=== PATIENT | female | born 1965 | race Caucasian/White ===

== ENCOUNTER 2022-10-23 09:20 | Outpatient (CLI) | payer BC | END 2022-10-23 09:21 | disposition home or self-care (01) | LOC: LABBT 09:20 | PROVIDERS: ATTEND Student in an Organized Health Care Education/Training Program | DX: Z01.818 Encounter for other preprocedural examination (principal); R09.81 Nasal congestion; J34.2 Deviated nasal septum; J32.4 Chronic pansinusitis; J34.3 Hypertrophy of nasal turbinates; J33.9 Nasal polyp, unspecified | CPT/HCPCS: 85014; 93005; 93010 ==

== ENCOUNTER 2022-10-27 06:01 | Day surgery (SDC) | payer BC ==
[2022-10-23 14:55] VITALS: BMI 28.7
[2022-10-27] MEDS ORDERED: Oxymetazoline HCl 0.05% (30 ML BOT) ONE ×2 (06:46→06:51)
[2022-10-27] MEDS ORDERED: fentaNYL PF 100 MCG/2 ML SYRINGE ONE (06:49)
[2022-10-27] MEDS ORDERED: EPINEPHrine 1 MG/ML AMP ONE (06:51)
[2022-10-27] MEDS ORDERED: Bacitracin Zinc Ointment 30 gm TUBE ONE (06:51)
[2022-10-27] MEDS ORDERED: Lidocaine 1% (PF) 30 ML VIAL ONE (06:51)
[2022-10-27] MEDS ORDERED: Propofol 1,000 MG/100 ML VIAL IV ONE ×2 (07:16→09:54)
[2022-10-27] MEDS ORDERED: CEFAZOLIN 2 GM VIAL ONE (07:26)
[2022-10-27] MEDS ORDERED: Sodium Chloride 0.9% 100 ML ONE (07:26)
[2022-10-27] MEDS ORDERED: Rocuronium Bromide 10 MG/ML (10ML VIAL) ONE (07:32)
[2022-10-27] MEDS ORDERED: Ondansetron PF 4 MG/2 ML Vial ONE (07:32)
[2022-10-27] MEDS ORDERED: PROPOFOL 200 MG/20 ML VIAL ONE (07:32)
[2022-10-27] MEDS ORDERED: Glycopyrrolate 0.2 MG/ML 5 ML SYRINGE ONE (07:32)
[2022-10-27] MEDS ORDERED: NEOSTIGMINE 3 MG/3 ML SYR 3 MG/3 ML SYRINGE ONE (07:32)
[2022-10-27] MEDS ORDERED: Lidocaine 1% PF 5 ML VIAL ONE (07:32)
[2022-10-27] MEDS ORDERED: Dexamethasone 20 MG/5 ML VIAL ONE (07:32)
[2022-10-27] MEDS ORDERED: PHENYLEPHRINE-NS 100 MCG/ML 10 ML SYRINGE ONE (07:32)
[2022-10-27] MEDS ORDERED: Triamcinolone 40 MG/ML VIAL ONE (10:12)
== END 2022-10-27 13:00 | disposition home or self-care (01) ==
LOC: SDC 06:01
PROVIDERS: ATTEND Student in an Organized Health Care Education/Training Program
PROC: 09BW8ZZ Excision of Right Sphenoid Sinus, Via Natural or Artificial Opening Endoscopic (ICD-10-PCS; principal; 2022-10-27)
PROC: 8E09XBZ Computer Assisted Procedure of Head and Neck Region (ICD-10-PCS; principal; 2022-10-27)
PROC: 09BS8ZZ Excision of Right Frontal Sinus, Via Natural or Artificial Opening Endoscopic (ICD-10-PCS; principal; 2022-10-27)
PROC: 09BX8ZZ Excision of Left Sphenoid Sinus, Via Natural or Artificial Opening Endoscopic (ICD-10-PCS; principal; 2022-10-27)
PROC: 09BR8ZZ Excision of Left Maxillary Sinus, Via Natural or Artificial Opening Endoscopic (ICD-10-PCS; principal; 2022-10-27)
PROC: 09BQ8ZZ Excision of Right Maxillary Sinus, Via Natural or Artificial Opening Endoscopic (ICD-10-PCS; principal; 2022-10-27)
PROC: 09TU8ZZ Resection of Right Ethmoid Sinus, Via Natural or Artificial Opening Endoscopic (ICD-10-PCS; principal; 2022-10-27)
PROC: 09TV8ZZ Resection of Left Ethmoid Sinus, Via Natural or Artificial Opening Endoscopic (ICD-10-PCS; principal; 2022-10-27)
PROC: 09BT8ZZ Excision of Left Frontal Sinus, Via Natural or Artificial Opening Endoscopic (ICD-10-PCS; principal; 2022-10-27)
DX: J32.4 Chronic pansinusitis (principal); J33.8 Other polyp of sinus; J34.2 Deviated nasal septum; J34.3 Hypertrophy of nasal turbinates; J30.9 Allergic rhinitis, unspecified; Z79.890 Hormone replacement therapy; Z88.1 Allergy status to other antibiotic agents
CPT/HCPCS: J0171; J1100; J2001; J2405; J2704; J3301; J3490